=== PATIENT | male | born 1990 | race Caucasian/White ===

== ENCOUNTER 2019-03-22 11:58 | Observation (INO) ==
[2019-03-22] MEDS ORDERED: NS 1,000 ML IV ONE ×3 (12:21→15:52)
[2019-03-22] MEDS ORDERED: ZOFRAN IV ONE (12:21)
[2019-03-22] MEDS ORDERED: BENTYL IM ONE (12:21)
[2019-03-22] MEDS ORDERED: TORADOL IV ONE (12:21)
[2019-03-22 12:55] LABS: BASO# 0.03 X1000 (0.0-0.2); BASO% 0.3 % (0.0-0.8); EOS# 0.05 X1000 (0.0-0.7); EOS% 0.4 % (0.0-10.0); HEMOGLOBIN 17.3 g/dL (14.0-18.0); IMM GRAN# 0.03 X1000 (0.0-0.04); IMM GRAN% 0.3 % (0.0-0.5); LYMPH# 2.74 X1000 (1.2-3.4); MCH 29.1 PG (27-31); MCHC 35.3 g/dL (33-37); MCV 82.4 FL (81-99); MONO# 1.43 X1000 (0.11-0.59); MONO% 12.5 % (1.7-9.3); MPV 11.7 FL (7.4-10.4); NEUT# 7.16 X1000 (1.4-6.5); NEUT% 62.5 % (42.2-75.2); PLT 352 X1000 (130-400); RBC 5.95 XMIL (4.7-6.1); RDW 12.9 % (11.5-14.5); WBC 11.44 X1000 (4.8-10.8)
[2019-03-22 13:25] LABS: BILIRUBIN URINE NEGATIVE (NEGATIVE); BLOOD URINE NEGATIVE (NEGATIVE); CLARITY CLEAR (CLEAR); COLOR YELLOW; KETONE URINE 1+(Small) mg/dL (NEGATIVE); LEUKOCYTES URINE TRACE (NEGATIVE); NITRITE URINE NEGATIVE (NEGATIVE); PROTEIN URINE TRACE mg/dL (NEGATIVE); UROBILINOGEN URINE 1 mg/dL
[2019-03-22 13:26] LABS: URINE EPITHELIAL CELLS <10 /HPF (<10)
[2019-03-22 13:27] LABS: URINE SOURCE CLEAN CATCH
[2019-03-22 13:31] LABS: CALCIUM 10.7 mg/dL (8.8-10.2); MAGNESIUM 2.4 mg/dL (1.5-2.7); POTASSIUM 3.3 mmol/L (3.5-5.1); TOTAL BILIRUBIN 1.7 mg/dL (0.20-1.00)
[2019-03-22 13:42] LABS: UR AMPHETAMINES QUAL PRESUMPTIVE POSITIVE (NONE DETECT); UR BARBITUATES QUAL NONE DETECTED (NONE DETECT); UR BENZODIAZEPIN QUAL NONE DETECTED (NONE DETECT); UR CANNABINOIDS QUAL PRESUMPTIVE POSITIVE (NONE DETECT); UR COCAINE QUAL NONE DETECTED (NONE DETECT); UR METHADONE QUAL NONE DETECTED (NONE DETECT); UR METHAMPHETAMINE QUAL PRESUMPTIVE POSITIVE (NONE DETECT); UR OPIATES QUAL PRESUMPTIVE POSITIVE (NONE DETECT); UR OXYCODONE QUAL NONE DETECTED (NONE DETECT); UR PCP QUAL NONE DETECTED (NONE DETECT); UR PROPOXYPHENE QUAL NONE DETECTED (NONE DETECT); UR TCA QUAL NONE DETECTED (NONE DETECT)
--- NOTE | 2019-03-22 14:01 | Diag Imaging Result Doc PS360 ---
EXAM: CT ABDOMEN/PELVIS W/O CONTRAST HISTORY: vomiting poss SBO, EH TECHNIQUE: CT abdomen and pelvis without contrast COMPARISON: None. FINDINGS: No calcified gallstones or adjacent inflammation. No focal hepatic abnormality identified on this noncontrasted exam. The spleen and left kidney have been removed. Normal pancreas, adrenal glands, and right kidney. No hydronephrosis. Normal aorta. The bowel loops are dilated. Normal appendix. No abscess. No ascites. The urinary bladder is only mildly distended. Normal prostate. IMPRESSION: 1.No bowel obstruction 2.Splenectomy and left nephrectomy This exam was performed using automated exposure control, adjustment of mA or kV according to patient size, and/or use of iterative reconstruction technique. Electronically signed by Pietro Valdez 03/22/2019 1:59 PM
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
[2019-03-22] MEDS ORDERED: TYLENOL PO PRN (15:52)
[2019-03-22] MEDS ORDERED: KLOR-CON PO ONE (17:17)
[2019-03-22] MEDS ORDERED: TORADOL IV PRN (17:40)
[2019-03-22] MEDS ORDERED: NUBAIN IV PRN (19:00)
[2019-03-22] MEDS ORDERED: PRILOSEC PO ONE (19:01)
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
[2019-03-22 21:22] LABS: UR CREAT RANDOM 175.8 mg/dL (14-26); UR PROT RANDOM 12.6 mg/dL
[2019-03-23 06:15] LABS: BASO# 0.04 X1000 (0.0-0.2); BASO% 0.4 % (0.0-0.8); EOS# 0.25 X1000 (0.0-0.7); EOS% 2.4 % (0.0-10.0); HEMATOCRIT 40.7 % (42.0-52.0); HEMOGLOBIN 13.5 g/dL (14.0-18.0); IMM GRAN# 0.02 X1000 (0.0-0.04); IMM GRAN% 0.2 % (0.0-0.5); LYMPH# 3.64 X1000 (1.2-3.4); LYMPH% 34.3 % (20.5-51.1); MCH 28.6 PG (27-31); MCHC 33.2 g/dL (33-37); MCV 86.2 FL (81-99); MONO# 1.79 X1000 (0.11-0.59); MONO% 16.9 % (1.7-9.3); MPV 11.5 FL (7.4-10.4); NEUT# 4.88 X1000 (1.4-6.5); NEUT% 45.8 % (42.2-75.2); PLT 288 X1000 (130-400); RBC 4.72 XMIL (4.7-6.1); RDW 13.2 % (11.5-14.5); WBC 10.62 X1000 (4.8-10.8)
[2019-03-23 06:29] LABS: CALCIUM 8.8 mg/dL (8.8-10.2); CREATININE 1.6 mg/dL (0.7-1.2); POTASSIUM 4.6 mmol/L (3.5-5.1)
[2019-03-23] MEDS ORDERED: PRILOSEC PO SCH (07:00)
[2019-03-23 07:46] VITALS: BP 132/69
[2019-03-23] MEDS: ZOFRAN IV PRN ×2 (08:18→12:38)
[2019-03-23] MEDS ORDERED: NS 500 ML IV ONE (11:43)
[2019-03-23] MEDS ORDERED: NS 1,000 ML IV ONE (11:44)
[2019-03-23] MEDS ORDERED: REGLAN IV SCH (12:30)
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
--- NOTE | 2019-03-24 08:26 | PROGRESS NOTE ---
DATE: 03/23/2019 The patient still had a little bit of nausea and vomiting this morning. We will continue to advance diet. His kidney function is improved. We will continue IV fluids. Anticipate discharge. I am not sure if he may not be experiencing some withdrawal but he is not going to give me any information or enough information. He says he does not use methamphetamine regularly. His last usage was maybe 2 weeks ago but it is still in his system so that is not accurate. In any case, I think if he is tolerating p.o. without difficulty, we can anticipate discharge later today. Follow up with primary care. cc: Pankaj Trejo MD
== END 2019-03-23 17:18 | disposition home or self-care (01) ==
LOC: P.ED 11:58 → P.MEDSURG 11:58
PROVIDERS: ATTEND Internal Medicine

== ENCOUNTER 2019-05-06 19:06 | Inpatient (IN) ==
[2019-05-06 19:41] LABS: URINE SOURCE CLEAN CATCH
[2019-05-06 19:47] LABS: BLOOD URINE NEGATIVE (NEGATIVE); COLOR YELLOW; GLUCOSE URINE NEGATIVE (NEGATIVE); KETONE URINE TRACE mg/dL (NEGATIVE); LEUKOCYTES URINE NEGATIVE (NEGATIVE); NITRITE URINE NEGATIVE (NEGATIVE); PH URINE 6.5; PROTEIN URINE 30 mg/dL (NEGATIVE); SP GRAVITY URINE 1.026; TURBIDITY URINE HAZY (CLEAR); UROBILINOGEN URINE 3 mg/dL (NORMAL)
[2019-05-06 19:50] LABS: BASO# 0.03 X1000 (0.0-0.2); BASO% 0.3 % (0.0-0.8); EOS# 0.05 X1000 (0.0-0.7); EOS% 0.5 % (0.0-10.0); HEMATOCRIT 52.9 % (42.0-52.0); HEMOGLOBIN 18.4 g/dL (14.0-18.0); IMM GRAN# 0.03 X1000 (0.0-0.04); IMM GRAN% 0.3 % (0.0-0.5); LYMPH# 2.43 X1000 (1.2-3.4); LYMPH% 23.9 % (20.5-51.1); MCH 28.5 PG (27-31); MCHC 34.8 g/dL (33-37); MCV 81.9 FL (81-99); MONO% 15.7 % (1.7-9.3); MPV 12.7 FL (7.4-10.4); NEUT# 6.04 X1000 (1.4-6.5); NEUT% 59.3 % (42.2-75.2); PLT 191 X1000 (130-400); RBC 6.46 XMIL (4.7-6.1); RDW 15.3 % (11.5-14.5); WBC 10.18 X1000 (4.8-10.8)
[2019-05-06 19:51] LABS: UR EPITHELIAL CELLS <10 /HPF (<10); URINE BACTERIA NEGATIVE /HPF; URINE RBC TNTC /HPF (<10); URINE WBC <10 /HPF (<10)
[2019-05-06 20:04] LABS: BILIRUBIN URINE LARGE (NEGATIVE)
[2019-05-06 20:10] LABS: URINE CRYSTALS NONE SEEN; URINE YEAST NONE SEEN
[2019-05-06 20:32] LABS: ESTIMATED GFR > 60
[2019-05-06 20:37] LABS: AGAP 17; ALB/GLOB RATIO 1.3; ALBUMIN 3.5 g/dL (3.5-5.0); ALKALINE PHOSPHATASE 201 U/L (32-122); AMYLASE 55 U/L (20-200); BUN 11 mg/dL (8-22); CALCIUM 8.3 mg/dL (8.8-10.2); CHLORIDE 86 mmol/L (98-107); COSMO 260; CREATININE 1.2 mg/dL (0.7-1.2); GLUCOSE 96 mg/dL (70-104); LIPASE 65 U/L (13-60); POTASSIUM 3.7 mmol/L (3.5-5.1); SODIUM 130 mmol/L (136-145); TCO2 27 mmol/L (25-35); TOTAL PROTEIN 6.3 g/dL (6.3-8.3)
[2019-05-06 20:40] LABS: GOT 3474 U/L (10-34)
[2019-05-06 20:41] LABS: GPT 3074 U/L (10-44)
[2019-05-06] MEDS ORDERED: NS 2,500 ML IV ONE (20:42)
[2019-05-06] MEDS ORDERED: ZOFRAN IV ONE (20:43)
--- NOTE | 2019-05-06 21:38 | Diag Imaging Result Doc PS360 ---
EXAM: CT ABDOMEN/PELVIS W/O CONTRAST INDICATION: abdominal pain with hematuria TECHNIQUE: This exam was performed using automated exposure control, adjustment of mA or kV according to patient size, and/or use of iterative reconstruction technique. COMPARISON: 03/22/2019 FINDINGS: There is stable metallic shrapnel in the subcutaneous soft tissues overlying the left chest wall anteriorly. There has been a prior splenectomy. There has been a prior left nephrectomy. The right kidney appears normal with no renal or ureteral stones and no hydronephrosis. The urinary bladder is unremarkable. The gallbladder is completely contracted. The liver, pancreas, and adrenal glands are unremarkable. Since the previous study, there has been development of small volume ascites tracking around the liver, in the left upper quadrant, and layering in the pelvis. The colonic wall appears mildly thickened as compared to the previous study and there is suggestion of mild pericolonic stranding. This suggests possible mild colitis. Please correlate clinically. There is no evidence of bowel obstruction. The remainder of the GI tract is grossly unremarkable. No free abdominal gas is appreciated. There is no evidence of acute osseous abnormality. IMPRESSION: 1.Interval development of small volume ascites. 2.Mild colonic wall thickening and suggestion of minimal pericolonic stranding. Consider mild colitis. 3.Other incidental/nonacute findings detailed above. Electronically signed by Patricio Granger 05/06/2019 9:35 PM
--- NOTE | 2019-05-06 22:55 | PROVIDER DOCUMENTATION ---
HPI-Abdominal Pain/GI Problem - General Chief Complaint: Abdominal Pain Stated Complaint: KIDNEY ISSUES, VOMITING Time Seen by Provider: 05/06/19 19:18 Source: patient Allergies/Adverse Reactions: Patient Allergies Allergy/AdvReac Type Severity Reaction Status Date / Time Aminoglycosides AdvReac Verified 05/07/19 13:31 amphotericin B AdvReac Verified 05/07/19 13:31 vancomycin AdvReac Verified 05/07/19 13:31 Home Medications: Home Medication List Medication Instructions Recorded Confirmed Last Taken Type Lisinopril 10 mg PO DAILY 03/22/19 05/06/19 Unknown History - History of Present Illness-ABD Nature of Presenting Problems: Patient reports generalized abdominal pain x 3 days with associated N/V and without constipation or diarrhea. He has not been able to keep food down for days now. Denies fever or sick contact Abdominal Pain Onset Location: reports: generalized abdomen Pain Radiation: reports: no radiation Quality of Pain: reports: throbbing Onset/Duration: reports: 3 days ago Timing: reports: still present Activities at Onset: reports: none Exposure to sick contacts?: No Modifying Factors: improves with: nothing Associated Symptoms: reports: nausea, vomiting Last BM: unsure Dark Stools Present?: reports: none noticed Rectal Bleeding: reports: none Review of Systems - Adult - REVIEW OF SYSTEMS - ADULT Constitutional: reports: no symptoms reported Eyes: reports: no symptoms reported Ears, Nose, Mouth & Throat: reports: no symptoms reported Cardiovascular: reports: no symptoms reported Respiratory: reports: no symptoms reported Gastrointestinal: reports: see HPI Genitourinary: reports: no symptoms reported Musculoskeletal: reports: no symptoms reported Integumentary: reports: no symptoms reported Neurological: reports: no symptoms reported Psychiatric: reports: no symptoms reported Endocrine: reports: no symptoms reported Hematologic/Lymphatic: reports: no symptoms reported Allergic/Immunologic: reports: no symptoms reported Past History - Adult - PAST MEDICAL HISTORY-ADULT Review of Records: reports: Nursing Assessment Review, Medications Reviewed, Social history reviewed & non-contributory. Gastrointestinal: reports: liver disease (hepC) Musculoskeletal: reports: denies history Neurological: reports: denies history Psychiatric: reports: denies history Endocrine/Immune: reports: denies history - PRIOR SURGERIES/PROCEDURES Surgical/Procedure History: reports: other (nephrectomy left, splenectomy) - FAMILY HISTORY Family History: reviewed, not pertinent - SOCIAL HISTORY Smoking: cigarettes (former) Substance Use: denies (substance use), alcohol Physical Exam-General - PHYSICAL EXAM-ADULT Initial Vital Signs Reviewed: Yes - CONSTITUTIONAL General Appearance: alert, mild distress - EYES Eyes: scleral icterus - HEAD, EARS, NOSE, MOUTH & THROAT HENMT: normocephalic/atraumatic - NECK Neck: non-tender, full range of motion, supple - RESPIRATORY Respiratory: chest non-tender, lungs clear, normal breath sounds - CARDIOVASCULAR Cardiovascular: regular rate, rhythm - GASTROINTESTINAL (ABDOMEN) Abdominal Exam: tenderness (mild, generalised, worse on the right) - MUSCULOSKELETAL Back Exam: normal inspection Extremity: normal range of motion, non-tender - SKIN Integumentary: normal turgor - NEUROLOGIC Neurologic: bass fisher II-XII nml as tested - PSYCHIATRIC Psych/Mental Status: oriented x 3 Progress - PLAN OF CARE/RESULTS Progress/Plan/Lab Results: Vital Signs - 8 hr 05/06/19 19:11 05/06/19 19:42 05/06/19 19:44 Temperature 97.7 F Pulse Rate 125 H Respiratory Rate 16 Blood Pressure 112/72 110/75 O2 Sat by Pulse Oximetry 95 98 97 05/06/19 19:45 05/06/19 20:00 05/06/19 20:15 Temperature Pulse Rate Respiratory Rate Blood Pressure O2 Sat by Pulse Oximetry 98 95 98 05/06/19 20:30 05/06/19 20:45 05/06/19 21:00 Temperature Pulse Rate 103 H 113 H Respiratory Rate 16 20 Blood Pressure O2 Sat by Pulse Oximetry 99 98 97 05/06/19 21:27 05/06/19 21:30 05/06/19 21:45 Temperature Pulse Rate 104 H 98 H 98 H Respiratory Rate 14 16 Blood Pressure O2 Sat by Pulse Oximetry 96 98 05/06/19 22:00 05/06/19 22:14 05/06/19 22:16 Temperature Pulse Rate 104 H 109 H 111 H Respiratory Rate 22 17 15 Blood Pressure 109/81 127/83 O2 Sat by Pulse Oximetry 99 99 99 Laboratory Results - last 24 hr 05/06/19 05/06/19 05/06/19 19:20 19:20 19:21 WBC 10.18 RBC 6.46 H Hgb 18.4 H Hct 52.9 H MCV 81.9 MCH 28.5 MCHC 34.8 RDW Std Deviation 15.3 H Plt Count 191 MPV 12.7 H Immature Gran % (Auto) 0.3 Neut % (Auto) 59.3 Lymph % (Auto) 23.9 [place] % (Auto) 15.7 H Eos % (Auto) 0.5 Baso % (Auto) 0.3 Immature Gran # (Auto) 0.03 Neut # (Auto) 6.04 Lymph # (Auto) 2.43 [place] # (Auto) 1.60 H Eos # (Auto) 0.05 Baso # (Auto) 0.03 Sodium 130 L Potassium 3.7 Chloride 86 L Carbon Dioxide 27 Anion Gap 17 BUN 11 Creatinine 1.2 Estimated GFR/1.73 m2 > 60 BUN/Creatinine Ratio 9 Glucose 96 Calculated Osmolality 260 Calcium 8.3 L Total Bilirubin 20.30 H AST 3474 H ALT 3074 H Alkaline Phosphatase 201 H Total Protein 6.3 Albumin 3.5 Globulin 2.8 Albumin/Globulin Ratio 1.3 Amylase 55 Lipase 65 H Plasma Lactate 4.7 H* Urine Source Urine Color Urine Turbidity Urine pH Ur Specific [place] Urine Protein Ur Glucose (Stick) Ur Ketones (Stick) Urine Blood Urine Nitrite Urine Bilirubin Urobilinogen Dipstick Urine Leukocytes Urine WBC (Auto) Urine RBC (Auto) U Epithel Cells (Auto) Urine Bacteria (Auto) Urine Crystals Small Round Cells Urine Casts Urine Yeast-like Cells 05/06/19 19:26 WBC RBC Hgb Hct MCV MCH MCHC RDW Std Deviation Plt Count MPV Immature Gran % (Auto) Neut % (Auto) Lymph % (Auto) [place] % (Auto) Eos % (Auto) Baso % (Auto) Immature Gran # (Auto) Neut # (Auto) Lymph # (Auto) [place] # (Auto) Eos # (Auto) Baso # (Auto) Sodium Potassium Chloride Carbon Dioxide Anion Gap BUN Creatinine Estimated GFR/1.73 m2 BUN/Creatinine Ratio Glucose Calculated Osmolality Calcium Total Bilirubin AST ALT Alkaline Phosphatase Total Protein Albumin Globulin Albumin/Globulin Ratio Amylase Lipase Plasma Lactate Urine Source CLEAN CATCH Urine Color YELLOW Urine Turbidity HAZY Urine pH 6.5 Ur Specific [place] 1.026 Urine Protein 30 A Ur Glucose (Stick) NEGATIVE Ur Ketones (Stick) TRACE A Urine Blood NEGATIVE Urine Nitrite NEGATIVE Urine Bilirubin LARGE A Urobilinogen Dipstick 3 A Urine Leukocytes NEGATIVE Urine WBC (Auto) <10 Urine RBC (Auto) TNTC A U Epithel Cells (Auto) <10 Urine Bacteria (Auto) NEGATIVE Urine Crystals NONE SEEN Small Round Cells Not Reportable Urine Casts Not Reportable Urine Yeast-like Cells NONE SEEN Orders Category Date Time Status Saline Loc DIRECTED Care 05/06/19 19:17 Active NPO Diet 05/06/19 19:[address] ABDOMEN/PELVIS W/O CONTRAST [CT] Stat Exams 05/06/19 20:35 Completed AMYLASE [CHEM] Stat Lab 05/06/19 19:20 Completed BLOOD CULTURE [BLDCUL] Stat Lab 05/06/19 19:49 Results CBC WITH ELECTRONIC DIFF [HEME] Stat Lab 05/06/19 19:20 Completed COMPREHENSIVE METABOLIC PANEL [CHEM] Stat Lab 05/06/19 19:20 Completed LACTATE, PLASMA [CHEM] Stat Lab 05/06/19 19:21 Completed LIPASE [CHEM] Stat Lab 05/06/19 19:20 Completed URINALYSIS W/POSS RFLX CULT [URINALYSIS] Stat Lab 05/06/19 19:26 Completed URINE MANUAL MICROSCOPIC [URINALYSIS] Stat Lab 05/06/19 19:26 Completed 0.9% Sodium Chloride Inj [Ns] 2,500 ml Med 05/06/19 20:42 Active IV 999 mls/hr Ondansetron [Zofran] Med 05/06/19 20:43 Discontinued 8 mg IV NOW ONE Result Diagrams: 05/06/19 19:20 05/06/19 19:20 - REASSESSMENT Reassessment #1 Status: unchanged (Patient continues to have abdominal pains but no nausea or vomiting. Has blood in urine, markedly elevated liver enzymes. receiving fluids for high lactate of 4.7. Discussed admission with patient and then Dr Causey) - CT/MRI 2 CT Study: Abdomen ( EXAM: CT ABDOMEN/PELVIS W/O CONTRAST INDICATION: abdominal pain with hematuria TECHNIQUE: This exam was performed using automated exposure control, adjustment of mA or kV according to patient size, and/or use of iterative reconstruction technique. COMPARISON: 03/22/2019 FINDINGS: There is stable metallic shrapnel in the subcutaneous soft tissues overlying the left chest wall anteriorly. There has been a prior splenectomy. There has been a prior left nephrectomy. The right kidney appears normal with no renal or ureteral stones and no hydronephrosis. The urinary bladder is unremarkable. The gallbladder is completely contracted. The liver, pancreas, and adrenal glands are unremarkable. Since the previous study, there has been development of small volume ascites tracking around the liver, in the left upper quadrant, and layering in the pelvis. The colonic wall appears mildly thickened as compared to the previous study and there is suggestion of mild pericolonic stranding. This suggests possible mild colitis. Please correlate clinically. There is no evidence of bowel obstruction. The remainder of the GI tract is grossly unremarkable. No free abdominal gas is appreciated. There is no evidence of acute osseous abnormality. IMPRESSION: 1.Interval development of small volume ascites. 2.Mild colonic wall thickening and suggestion of minimal pericolonic stranding. Consider mild colitis. 3.Other incidental/nonacute findings detailed above. Electronically signed by Patricio Granger 05/06/2019 9:35 PM [id number]/06/192134 Interpreting Physician: Patricio Granger MD Dictated Date/Time: 05/06/[id number]) - CONSULTS/PCP/HOSPITALIST Notification #1 *Consult/PCP/Hospitalist*: Dr Causey Time Discussed: 10:55 Consult Disposition: Admit (accepts admission) Departure - Departure Date of Disposition Decision: 05/06/19 Time of Disposition Decision: 22:58 DIAGNOSIS: Vomiting with nausea, not intractable, Transaminitis, Lactate blood increase Abdominal pain Qualifiers: Abdominal location: generalized Qualified Code(s): R10.84 - Generalized abdomi nal pain Disposition: ADMITTED INPATIENT 09 Certified Medical Emergency: Emergent Condition: Fair - Critical Care Note This patient required my direct & personal management of CC.: No Attestation - Physician/ HEIDY Attestation Patient care was provided by Advanced Practice Provider:: No The physician spent face to face time with patient:: Yes Advanced Practice Provider documentation review:: Supervising physician onsite and consulted in the evaluation and care of this patient. The physician did have a face to face encounter with the patient.
[2019-05-07] MEDS ORDERED: TORADOL IV ONE ×2 (00:26→15:10)
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
[2019-05-07] MEDS: ZOFRAN IV PRN (04:32)
[2019-05-07] MEDS: NS 1,000 ML IV SCH ×2 (04:32→15:33)
[2019-05-07] MEDS ORDERED: MORPHINE IV ONE (05:15)
[2019-05-07] MEDS: PRINIVIL PO SCH (11:22)
[2019-05-07 14:20] LABS: UR AMPHETAMINES QUAL NONE DETECTED (NONE DETECT); UR BARBITUATES QUAL NONE DETECTED (NONE DETECT); UR BENZODIAZEPIN QUAL NONE DETECTED (NONE DETECT); UR CANNABINOIDS QUAL PRESUMPTIVE POSITIVE (NONE DETECT); UR COCAINE QUAL NONE DETECTED (NONE DETECT); UR METHADONE QUAL NONE DETECTED (NONE DETECT); UR OPIATES QUAL NONE DETECTED (NONE DETECT); UR OXYCODONE QUAL NONE DETECTED (NONE DETECT); UR PCP QUAL NONE DETECTED (NONE DETECT)
[2019-05-07 15:28] LABS: TOTAL IRON 156 ug/dL (53-167); UNBOUND IRON < 1 ug/dL (112-346)
--- NOTE | 2019-05-07 20:35 | PROGRESS NOTE ---
DATE: 05/07/2019 INTERVAL HISTORY: Mr. Gonzalez was admitted for nausea, vomiting, and mainly epigastric abdominal pain of 3 days' duration and was found to have acute hepatitis. SUBJECTIVE: He states occasionally he smokes marijuana, but he does not use any intravenous drugs anymore. He states that he was diagnosed with hepatitis C 2 years ago but does not know the chronicity, activity or if it was associated with hepatitis B as well or not. He states he is currently ready to eat. He is complaining of yellow-colored urine. He has not had any vomiting since he has been on the hospital floor. OBJECTIVE: Vitals: Temperature of 98.4 degrees, pulse 119, respiratory rate 16, blood pressure 106/62, saturating 98% room air. On physical examination: Not in any acute distress. Scleral and skin icterus. Air entry bilaterally equal. No wheeze, rhonchi, crackles, S1, S2 normal. No murmur or gallop. The abdomen is soft. Right upper quadrant tenderness. Liver edge palpable about 2 cm below the costal margin. Active bowel sounds. No lower extremity edema. He is alert and oriented x3. LABS: His hemoglobin was 18.4, platelet of 191. Chemistry suggestive of hyponatremia, hypochloremia, elevated total and direct bilirubin and transaminitis and lactic acidosis. MICROBIOLOGY: Blood culture has not shown any growth to date. IMAGING: Abdomen and pelvis CT suggestive of interval development of small volume of ascites. ASSESSMENT AND PLAN: 1. Acute hepatitis. Differential includes acute viral hepatitis, or reactivation or flare-up of chronic hepatitis, versus others. Continue intravenous fluid resuscitation. Follow up hepatitis panel and antinuclear antibody. Further tests will be ordered based on those laboratory test results. The patient was counseled about refraining from intravenous drug use. He agrees. I will start patient on diet. 2. Essential hypertension. Continue lisinopril. 3. Intractable nausea and vomiting. Continue patient on Zofran as needed. DISPOSITION: Continue monitoring patient inside the hospital. Dr. Thakur from GI has been consulted. cc: Stewart Pisano MD [facility]
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
[2019-05-08] MEDS: NS 1,000 ML IV SCH (00:14)
[2019-05-08] MEDS ORDERED: MORPHINE IV ONE (00:24)
[2019-05-08] MEDS: ZOFRAN IV PRN (00:56)
[2019-05-08 07:39] LABS: ALBUMIN 2.5 g/dL (3.5-5.0); CALCIUM 8.1 mg/dL (8.8-10.2); CREATININE 1.7 mg/dL (0.7-1.2); POTASSIUM 4.1 mmol/L (3.5-5.1)
[2019-05-08 07:50] LABS: TOTAL BILIRUBIN 18.34 mg/dL (0.20-1.00)
[2019-05-08 08:38] LABS: BASO# 0.06 X1000 (0.0-0.2); BASO% 0.6 % (0.0-0.8); EOS# 0.22 X1000 (0.0-0.7); EOS% 2.3 % (0.0-10.0); HEMATOCRIT 42.3 % (42.0-52.0); HEMOGLOBIN 14.7 g/dL (14.0-18.0); LYMPH# 2.56 X1000 (1.2-3.4); LYMPH% 26.9 % (20.5-51.1); MCH 29.2 PG (27-31); MCHC 34.8 g/dL (33-37); MCV 84.1 FL (81-99); MONO# 1.74 X1000 (0.11-0.59); MONO% 18.3 % (1.7-9.3); MPV 12.8 FL (7.4-10.4); NEUT# 4.93 X1000 (1.4-6.5); NEUT% 51.9 % (42.2-75.2); PLT 215 X1000 (130-400); RBC 5.03 XMIL (4.7-6.1); RDW 15.7 % (11.5-14.5); WBC 9.51 X1000 (4.8-10.8)
[2019-05-08 09:01] LABS: BANDS 2 % (0-1); EOS 2 % (1-10); LYMPHS 28 % (21-51); MONO 12 % (1-9); SEGS 54 % (42-75)
[2019-05-08 09:02] LABS: HYPOCHROM 1+; POIKILOCYTOSIS 1+
[2019-05-08 09:56] LABS: INR 2.21; PROTIME 25.1 Seconds (11.0-16.0)
[2019-05-08 09:57] LABS: PTT 41.1 Seconds (22.3-41.8)
--- NOTE | 2019-05-08 11:10 | Diag Imaging Result Doc PS360 ---
EXAM: US ABDOMEN-COMPLETE INDICATION: hepatitis COMPARISON: None. FINDINGS: There is small volume ascites tracking around the liver and in the left upper quadrant. The gallbladder wall is thickened and edematous. This may be, at least in part, due to the adjacent ascites and partial contraction. Correlate clinically to exclude a component of cholecystitis. Sonographic Mosher's sign was reported to be negative by the advertising job [employer]. The liver is grossly unremarkable. No discrete hepatic mass is identified. Portal venous flow is hepatopetal. The pancreas is partially obscured. The visualized portion is unremarkable. The visualized portions of the aorta and IVC are grossly unremarkable. There has been a prior splenectomy. There has been a prior left nephrectomy. The right kidney is unremarkable. IMPRESSION: 1.Small volume ascites. 2.Thickened and edematous gallbladder wall that may be due to the adjacent ascites and partial contraction. However, a component of cholecystitis cannot completely be excluded in the right clinical scenario. Electronically signed by Patricio Granger 05/08/2019 11:08 AM
[2019-05-08] MEDS: PRINIVIL PO SCH (11:34)
--- NOTE | 2019-05-08 14:07 | PROGRESS NOTE ---
DATE: 05/08/2019 INTERVAL HISTORY: No acute events overnight. He did have a jump in his creatinine. His liver function tests are trending down. His hepatitis panel is pending. SUBJECTIVE: He is feeling better today. He still complains of some abdominal pain. Denies new complaints. We discussed about pending liver function tests and improvement in liver enzymes. I answered all of his questions. VITALS: Temperature 97.4 degrees, pulse 93, respiratory 18, blood pressure 110/70, saturating 95% on room air. PHYSICAL EXAMINATION: Not in any acute distress. He has generalized icterus. Oral cavity is moist. Lungs: Air entry bilaterally equal. No wheeze, rhonchi, crackles. Cardiovascular: S1, S2 normal. No murmur, rub, or gallop. Abdomen: Soft. No guarding. No rigidity. No real tenderness. Active bowel sounds. No lower extremity edema. He is alert and oriented x3. LABS: His CBC suggests drop in hemoglobin from 18.4 to 14.7. His INR is elevated. His hyponatremia and hypochloremia are improving. His BUN remains the same. He does have an increase in his creatinine. His total bilirubin, AST, and ALT are decreasing. He had elevated lactic acidosis, thought to be related to liver failure. His urine toxicology was only positive for cannabis. Blood culture has not shown any growth to date. Abdominal ultrasound had small volume ascites, erythematous gallbladder wall, likely due to ascites and partial contraction. He does not have any positive Mosher's sign at the time of my evaluation to suggest cholecystitis. ASSESSMENT AND PLAN: 1. Acute hepatitis. Differential includes acute viral hepatitis or flare-up of chronic hepatitis versus others. His ferritin level is elevated, though his hemoglobin improved after intravenous fluid resuscitation. He denies known family history of hemochromatosis. I will follow up with hepatitis panel and antinuclear antibody. Appreciate gastroenterology recommendation about further workup as needed. He does have gallbladder wall edema but no clinical findings to suggest acute cholecystitis. 2. Essential hypertension. I am holding lisinopril. 3. Kidney dysfunction. This could be related to intravascular volume depletion versus use of ketorolac. I am holding further nonsteroidal anti-inflammatory drug medications and I will follow up with kidney function tomorrow. Continue intravenous fluids. 4. Intractable nausea and vomiting, now better. Continue Zofran as needed. 5. Disposition. I will monitor patient inside the hospital. Await hepatitis panel. Plan of care discussed with him. His questions have been answered. Yesterday, I had a detailed discussion about the plan of action with his father at the bedside as well. cc: Stewart Pisano MD
[2019-05-08] MEDS ORDERED: BENTYL PO ONE (19:02)
[2019-05-08 20:21] LABS: INR 1.77
--- NOTE | 2019-05-08 21:18 | GASTROENTEROLOGY PROGRESS NOTE ---
DATE: 05/08/2019 SUBJECTIVE: Patient does report some abdominal pain today. He states he has had more pain since the abdominal ultrasound was done. Ultrasound results are reviewed showing small volume ascites, thickened and edematous gallbladder wall. May be due to adjacent ascites and partial contraction however possible cholecystitis cannot be excluded. OBJECTIVE: Vital Signs: Temperature 97.4 degrees, pulse 93, respirations 18, blood pressure 110/70. General: Patient is awake and alert. No acute distress. Abdomen: Soft with some tenderness with palpation. LABORATORY: Hematology. WBC 9.51, hemoglobin 14.7, hematocrit 42.3, MCV 84.1. Chemistry. Sodium 135, potassium 4.1, chloride 99, CO2 28, BUN 13, creatinine 1.7, glucose 84. ASSESSMENT AND PLAN: 1. Acute hepatitis. Waiting on hepatitis profile. 2. Elevated PT/INR. Will repeat tomorrow. 3. Abdominal pain. Ultrasound showing small volume ascites and thickened edematous gallbladder, possibility of cholecystitis cannot be excluded. Will continue to follow. Further plans to be made according to his progress. Repeat labs tomorrow. He may need a HIDA scan for further evaluation. I have discussed this case with Dr. Thakur. Dictated by MARCELINO Ralph for Can Thakur MD cc: MARCELINO Navarrete MD
[2019-05-09] MEDS: NS 1,000 ML IV SCH ×4 (05:36→23:48)
[2019-05-09 07:00] LABS: INR 1.66
[2019-05-09 07:03] LABS: BASO# 0.08 X1000 (0.0-0.2); BASO% 0.7 % (0.0-0.8); EOS# 0.22 X1000 (0.0-0.7); EOS% 1.9 % (0.0-10.0); HEMATOCRIT 42.2 % (42.0-52.0); HEMOGLOBIN 14.8 g/dL (14.0-18.0); IMM GRAN# 0.02 X1000 (0.0-0.04); IMM GRAN% 0.2 % (0.0-0.5); LYMPH# 2.85 X1000 (1.2-3.4); LYMPH% 24.8 % (20.5-51.1); MCHC 35.1 g/dL (33-37); MCV 82.7 FL (81-99); MONO# 1.87 X1000 (0.11-0.59); MONO% 16.3 % (1.7-9.3); MPV 12.1 FL (7.4-10.4); NEUT# 6.44 X1000 (1.4-6.5); NEUT% 56.1 % (42.2-75.2); PLT 245 X1000 (130-400); RDW 15.8 % (11.5-14.5); WBC 11.48 X1000 (4.8-10.8)
[2019-05-09 07:52] LABS: AGAP 9; ALBUMIN 2.5 g/dL (3.5-5.0); ALKALINE PHOSPHATASE 155 U/L (32-122); BUN 11 mg/dL (8-22); CALCIUM 8.3 mg/dL (8.8-10.2); CHLORIDE 98 mmol/L (98-107); COSMO 262; CREATININE 1.2 mg/dL (0.7-1.2); ESTIMATED GFR > 60; GLUCOSE 72 mg/dL (70-104); GOT 436 U/L (10-34); POTASSIUM 4.2 mmol/L (3.5-5.1); SODIUM 132 mmol/L (136-145); TCO2 25 mmol/L (25-35); TOTAL PROTEIN 4.9 g/dL (6.3-8.3)
[2019-05-09 08:01] LABS: GPT 864 U/L (10-44); TOTAL BILIRUBIN 18.73 mg/dL (0.20-1.00)
[2019-05-09 12:26] LABS: HEPATITIS PROFILE ACUTE SEE COMMENTS
--- NOTE | 2019-05-09 14:45 | GASTROENTEROLOGY PROGRESS NOTE ---
DATE: 05/09/2019 SUBJECTIVE: Patient is awake and alert. He is complaining of abdominal pain. OBJECTIVE: Vital Signs: Temperature 98.2 degrees, pulse 101, respirations 18, blood pressure 122/70. General: The patient is awake and alert. Abdomen: Soft, tender, worse at right quadrant. LABORATORY: Hematology: WBC 11.48, hemoglobin 14.8, hematocrit 42.2, MCV 82.7, platelets 245. Coagulation: Pro time 20.0, INR 1.66, PTT 41.1. Chemistry: Sodium 132, potassium 4.2, chloride 98, CO2 25. BUN 11, creatinine 1.2, glucose 72, calcium 8.3, total bilirubin 18.73. AST 436, ALT 864, alkaline phosphatase 155. ASSESSMENT AND PLAN: 1. Acute hepatitis. waiting on hepatitis profile results. 2. Elevated PT/INR has slightly improved today. 3. Elevated liver function tests with some improvement. 4. Abdominal pain. Ultrasound showed small volume ascites and thickened edematous gallbladder. Possibility of cholecystitis could not be excluded. I will discuss this case with Dr. Thakur. We may need to order a HIDA scan for further evaluation. Will continue to follow during his hospital course, and further plans to be made as needed. I have discussed this case with Dr. Thakur. Dictated by MARCELINO Ralph for Can Thakur MD cc: MARCELINO Navarrete MD [facility]
[2019-05-09] MEDS: DILAUDID IV PRN (18:26)
--- NOTE | 2019-05-09 19:38 | PROGRESS NOTE ---
DATE: 05/09/2019 INTERVAL HISTORY: He continues to have abdominal pain. His hepatitis panel is positive for hepatitis B surface antigen, hepatitis A virus IgM and hepatitis C virus antibody. The patient denies any people or contact to known hepatitis A virus case. He states that he had acquired hepatitis B and hepatitis C when he was incarcerated for 1 year when he was 26 to 27 years old. He previously also had intravenous drug use. Currently, he states he only smokes marijuana which was probably 2 weeks ago. He denies nausea and vomiting. He complains of generalized abdominal pain. He complains of yellowness of urine. No change in bowel habits. VITAL SIGNS: Temperature 99 degrees, pulse 91 respiratory 18, blood pressure 124/76, saturating 97% on room air. PHYSICAL EXAMINATION: Eyes: Marked icterus. Lungs: Air entry bilaterally equal. No wheeze, rhonchi, crackles. Cardiovascular: S1, S2 normal. No murmur or gallop. Abdomen: Soft. Tenderness to palpation generalized abdomen. Active bowel sounds. Tympanic to percussion most part of the abdomen except lower flanks. Extremity: No lower extremity edema. Neurologic: He is alert and oriented x3. LABS: CBC is largely unremarkable. His INR is decreasing. He does have elevated bilirubin, improving AST, ALT, and alkaline phosphatase. Microbiology: No positive data. Hepatitis panel suggest hepatitis B surface antigen is reactive. Hepatitis C antibody is reactive. Hepatitis A viral antibody is also reactive in IgM. Hepatitis B virus DNA is pending. ASSESSMENT AND PLAN: 1. Acute hepatitis, likely viral in etiology. Acute hepatitis A and hepatitis B are likely a contributing factor, though HBV DNA is pending to confirm the acuity versus chronicity. I will continue to manage him supportively with IV fluids until we get the further blood test. 2. Small amount of ascites has been detected on abdominal ultrasound. Considering his generalized abdominal pain, I assume gastroenterology team is planning a paracentesis tomorrow. I will follow up with the studies. 3. Kidney dysfunction due to intravascular volume depletion, now improved. 4. Abdominal pain. I will give low dose of hydromorphone and continue Zofran as needed with current diet. DISPOSITION: I will monitor patient inside the hospital as we await further hepatitis serologies results and await improvement in liver function tests. Based on that, I will consider discharging home in next 48 hours or so if Gastroenterology would be okay. Plan of care discussed with him. His questions have been answered. cc: Stewart Pisano MD
[2019-05-10] MEDS: DILAUDID IV PRN ×3 (06:33→20:09)
[2019-05-10 07:13] LABS: BASO# 0.05 X1000 (0.0-0.2); BASO% 0.5 % (0.0-0.8); EOS# 0.19 X1000 (0.0-0.7); HEMATOCRIT 40.1 % (42.0-52.0); HEMOGLOBIN 14.2 g/dL (14.0-18.0); IMM GRAN# 0.03 X1000 (0.0-0.04); IMM GRAN% 0.3 % (0.0-0.5); LYMPH# 2.08 X1000 (1.2-3.4); LYMPH% 21.7 % (20.5-51.1); MCH 29.3 PG (27-31); MCHC 35.4 g/dL (33-37); MCV 82.9 FL (81-99); MONO# 1.69 X1000 (0.11-0.59); MONO% 17.7 % (1.7-9.3); MPV 12.1 FL (7.4-10.4); NEUT# 5.53 X1000 (1.4-6.5); NEUT% 57.8 % (42.2-75.2); PLT 265 X1000 (130-400); RBC 4.84 XMIL (4.7-6.1); RDW 15.8 % (11.5-14.5); WBC 9.57 X1000 (4.8-10.8)
[2019-05-10 07:21] LABS: INR 1.33; PROTIME 16.8 Seconds (11.0-16.0)
[2019-05-10 08:21] LABS: AGAP 10; ALBUMIN 2.4 g/dL (3.5-5.0); ALKALINE PHOSPHATASE 142 U/L (32-122); BUN 13 mg/dL (8-22); CALCIUM 7.9 mg/dL (8.8-10.2); CHLORIDE 101 mmol/L (98-107); COSMO 271; CREATININE 1.1 mg/dL (0.7-1.2); ESTIMATED GFR > 60; GLUCOSE 87 mg/dL (70-104); GOT 244 U/L (10-34); GPT 587 U/L (10-44); SODIUM 136 mmol/L (136-145); TCO2 25 mmol/L (25-35); TOTAL BILIRUBIN 20.08 mg/dL (0.20-1.00); TOTAL PROTEIN 4.7 g/dL (6.3-8.3)
--- NOTE | 2019-05-10 09:04 | Diag Imaging Result Doc PS360 ---
US GB < RUQ (LIMITED) - 05/10/2019 INDICATION: elevated lfts, ascites TECHNIQUE: COMPARISON: 05/08/2019 FINDINGS: There is trace ascites, certainly not enough to sample. The solid abdominal organs remain normal. IMPRESSION: Trace ascites, not enough sample. Electronically signed by Guillermo Villalobos 05/10/2019 9:02 AM
--- NOTE | 2019-05-10 15:28 | Diag Imaging Result Doc PS360 ---
EXAM: HIDA SCAN W/O EJECT. FRACTION INDICATION: abnormal US, elevated LFTs TECHNIQUE: 5.1 mCi of technetium 99 Choletec was administered intravenously and images were obtained. COMPARISON: None. FINDINGS: Hepatocellular activity is seen immediately on the initial image. However, after 120 minutes, there was still no gallbladder activity and there was no activity in small bowel. There is no obvious biliary ductal activity. At this point, the study was terminated. IMPRESSION: Hepatocellular uptake but no biliary excretion identified after 120 minutes. This usually indicates biliary obstruction. However, conditions such as acute hepatitis may significantly delayed excretion. Please correlate clinically. Electronically signed by Patricio Granger 05/10/2019 3:26 PM
[2019-05-10] MEDS: NS 1,000 ML IV SCH (16:19)
--- NOTE | 2019-05-10 23:36 | GASTROENTEROLOGY PROGRESS NOTE ---
DATE: 05/10/2019 SUBJECTIVE: Patient is awake and alert in no acute distress. He states his abdominal pain has improved slightly with the pain medication. He had an ultrasound this morning for possible paracentesis but there was only trace ascites and not enough to sample. Patient had a HIDA scan that showed hepatocellular uptake but no biliary excretion identified after 120 minutes usually indicating possible biliary obstruction however condition such as acute hepatitis may significantly delayed excretion. OBJECTIVE: Vital Signs: Temperature 98.9 degrees, pulse 95, respirations 20, blood pressure 125/75. LABORATORY: Hematology. WBC 9.57, hemoglobin 14.2, hematocrit 40.1, MCV 82.9, platelet 265,000. Chemistry. Sodium 136, potassium 4.0, chloride 101, CO2 25, BUN 13, creatinine 1.1, glucose 87, total bilirubin 20.08, AST 244, ALT 587, alkaline phosphatase 142. Patient's hepatitis panel showed hepatitis B surface antigen reactive, hepatitis B core antibody nonreactive, hepatitis C antibody reactive, hepatitis A viral antibody IgM reactive. ASSESSMENT AND PLAN: 1. Acute hepatitis. Patient has acute hepatitis A and hepatitis B and Hepatitis C. We are waiting on hepatitis B viral load by BDNA and also waiting on hepatitis C genotype and viral load. 2. Small amount of ascites unable to collect fluid for analysis. 3. HIDA scan abnormal possibility of false abnormality due to elevated bilirubin and acute hepatitis, synthetic function seems to be improving, will continue to follow. Awaiting on other lab results. Further plans will be made as needed. I have discussed this case with Dr. Thakur. Dictated by MARCELINO Ralph for Can Thakur MD cc: MARCELINO Navarrete MD [facility]
[2019-05-10] MEDS: LOVENOX SUBQ SCH (23:45)
[2019-05-11] MEDS: DILAUDID IV PRN ×6 (01:04→21:26)
--- NOTE | 2019-05-11 03:52 | PROGRESS NOTE ---
DATE: 05/10/2019 SUBJECTIVE: The patient is resting comfortably in bed. He complains of abdominal pain and mild nausea. OBJECTIVE: Vital Signs: Temperature 97 degrees, blood pressure 114/59, heart rate 95, respirations 20, and O2 saturation 97% on room air. General: This is a young male lying in bed, in no acute distress. Heart: S1, S2 normal. Regular rate and rhythm. Lungs: Equal air entry bilaterally. No wheezing. No rales. No rhonchi. Abdomen: Positive bowel sounds. Soft, nontender, nondistended. Extremities: No edema, no cyanosis. Neurologic: The patient is alert and oriented x4. LABS: White blood cell count 9.5, hemoglobin 14, hematocrit 40, platelets 265,000. Sodium 136, potassium 4, chloride 101, CO2 25, BUN 13, creatinine 1.1, glucose 87, total bilirubin 20, AST 244, ALT 587, alkaline phosphatase 142, albumin 2.4. ASSESSMENT AND PLAN: 1. Acute hepatitis. The patient is positive for hepatitis A, B and C. His bilirubin remains elevated but the transaminases are improving. Continue with supportive care. GI is following. 2. Acute kidney injury. Resolved. 3. Deep vein thrombosis prophylaxis. Will start the patient on Lovenox. cc: Jessy Yeung MD MTDD
[2019-05-11] MEDS: NS 1,000 ML IV SCH ×2 (05:19→17:06)
[2019-05-11] MEDS: PRILOSEC PO SCH (06:44)
[2019-05-11 07:25] LABS: BASO# 0.06 X1000 (0.0-0.2); BASO% 0.6 % (0.0-0.8); EOS# 0.25 X1000 (0.0-0.7); EOS% 2.4 % (0.0-10.0); HEMATOCRIT 38.8 % (42.0-52.0); HEMOGLOBIN 13.6 g/dL (14.0-18.0); IMM GRAN# 0.05 X1000 (0.0-0.04); IMM GRAN% 0.5 % (0.0-0.5); LYMPH# 3.33 X1000 (1.2-3.4); LYMPH% 31.7 % (20.5-51.1); MCH 29.2 PG (27-31); MCHC 35.1 g/dL (33-37); MCV 83.4 FL (81-99); MONO# 1.77 X1000 (0.11-0.59); MONO% 16.9 % (1.7-9.3); MPV 12.2 FL (7.4-10.4); NEUT# 5.04 X1000 (1.4-6.5); NEUT% 47.9 % (42.2-75.2); PLT 282 X1000 (130-400); RBC 4.65 XMIL (4.7-6.1); RDW 16.4 % (11.5-14.5)
[2019-05-11 07:50] LABS: AGAP 10; ALBUMIN 2.5 g/dL (3.5-5.0); ALKALINE PHOSPHATASE 137 U/L (32-122); BUN 14 mg/dL (8-22); CALCIUM 7.8 mg/dL (8.8-10.2); CHLORIDE 99 mmol/L (98-107); COSMO 267; CREATININE 0.9 mg/dL (0.7-1.2); ESTIMATED GFR > 60; GLUCOSE 108 mg/dL (70-104); GOT 138 U/L (10-34); GPT 418 U/L (10-44); POTASSIUM 3.6 mmol/L (3.5-5.1); SODIUM 133 mmol/L (136-145); TCO2 24 mmol/L (25-35); TOTAL BILIRUBIN 18.12 mg/dL (0.20-1.00); TOTAL PROTEIN 5.1 g/dL (6.3-8.3)
[2019-05-11 10:03] LABS: HCV BY PCR SEE COMMENTS
[2019-05-11 13:02] LABS: INR 1.18; PROTIME 15.2 Seconds (11.0-16.0)
--- NOTE | 2019-05-11 17:29 | GASTROENTEROLOGY PROGRESS NOTE ---
DATE: 05/11/2019 SUBJECTIVE: The patient is awake and alert. He states his pain is improved with pain medication. OBJECTIVE: Vital Signs: Temperature 97.9 degrees, pulse 107, respirations 20, blood pressure 120/75. General: The patient is awake and alert, in no acute distress. Abdomen: Soft. Mild tenderness with palpation. Positive bowel sounds. LABORATORY DATA: Hematology: WBC 10.50, hemoglobin 13.6, hematocrit 38.8, MCV 83.4, platelets 282,000. Coagulation done on 05/10/2019: Pro time 16.8, INR 1.33. Chemistry: Sodium 133, potassium 3.6, chloride 99, CO2 is 24, BUN 14, creatinine 0.9, glucose 108, calcium 7.8, total bilirubin 18.12, AST 138, ALT 418, alkaline phosphatase 137. HCV RNA came back undetected. Still waiting on hepatitis B supplemental test. ASSESSMENT AND PLAN: Acute hepatitis. The patient is positive for hepatitis A, B and C. Liver function tests are slowly improving. Would recommend repeating PT and INR today, and will repeat PT, INR and liver function tests tomorrow. His hepatitis C viral load is undetected. Waiting on hepatitis B supplemental test to result. We will continue to follow. If he is discharged over the weekend, would recommend he follow with us as an outpatient. I have discussed this case with Dr. Thakur. Dictated by MARCELINO Ralph for Can Thakur MD cc: MARCELINO Navarrete MD
--- NOTE | 2019-05-11 19:23 | PROGRESS NOTE ---
DATE: 05/11/2019 SUBJECTIVE: The patient is resting comfortably. He states that he feels a lot better. His pain is under better control. He had a bowel movement as well today. OBJECTIVE: Vital Signs: Temperature 98.1 degrees, blood pressure 119/73, heart rate 89, respirations 14, O2 saturation is 98% on room air. General: This is a jaundiced young male, lying in bed in no acute distress. Eyes: Positive for scleral icterus. Heart: S1, S2 normal. Regular rate and rhythm. Lungs: Clear to auscultation bilaterally. Abdomen: Positive bowel sounds. Soft, diffuse tenderness. Extremities: Trace pedal edema bilaterally in the lower extremities. Neurologic: The patient is alert and oriented x4. LABORATORY DATA: Hemoglobin 13, hematocrit 38, platelets 282,000. Sodium 133, potassium 3.6, chloride 99, CO2 of 24, BUN 14, creatinine 0.9, glucose 108. Total bilirubin 18, AST 138, ALT 418, alkaline phosphatase 137, albumin 2.5. ASSESSMENT AND PLAN: 1. Acute hepatitis secondary to hepatitis A and B. The hepatitis C is undetectable at this time. The patient's liver function studies are slowly improving. Continue with supportive care. GI is following. 2. Acute kidney injury. Resolved. 3. Hyponatremia. Continue to monitor closely. The patient is currently on IV fluids. 4. Deep vein thrombosis prophylaxis. Continue on Lovenox. cc: Jessy Yeung MD
[2019-05-11] MEDS: LOVENOX SUBQ SCH (22:39)
[2019-05-12] MEDS: DILAUDID IV PRN ×6 (02:01→21:59)
[2019-05-12] MEDS: PRILOSEC PO SCH ×2 (04:42→06:22)
[2019-05-12] MEDS: NS 1,000 ML IV SCH ×3 (05:52→10:12)
[2019-05-12 06:05] LABS: INR 1.2; PROTIME 15.4 Seconds (11.0-16.0)
[2019-05-12 06:07] LABS: HEMATOCRIT 36.4 % (42.0-52.0); HEMOGLOBIN 12.8 g/dL (14.0-18.0); MCH 29.8 PG (27-31); MCHC 35.2 g/dL (33-37); MCV 84.8 FL (81-99); MPV 11.6 FL (7.4-10.4); RBC 4.29 XMIL (4.7-6.1); RDW 16.7 % (11.5-14.5); WBC 10.72 X1000 (4.8-10.8)
[2019-05-12 06:29] LABS: AGAP 8; ALB/GLOB RATIO 0.8; ALBUMIN 2.2 g/dL (3.5-5.0); ALKALINE PHOSPHATASE 122 U/L (32-122); BUN 13 mg/dL (8-22); CALCIUM 7.7 mg/dL (8.8-10.2); CHLORIDE 102 mmol/L (98-107); COSMO 266; ESTIMATED GFR > 60; GLUCOSE 98 mg/dL (70-104); GOT 93 U/L (10-34); GPT 300 U/L (10-44); POTASSIUM 3.4 mmol/L (3.5-5.1); SODIUM 133 mmol/L (136-145); TCO2 23 mmol/L (25-35); TOTAL PROTEIN 5.1 g/dL (6.3-8.3)
[2019-05-12 06:39] LABS: ALB/GLOB RATIO 0.9; ALBUMIN 2.3 g/dL (3.5-5.0); ALKALINE PHOSPHATASE 122 U/L (32-122); DIRECT BILIRUBIN > 10.00 mg/dL (0.00-0.20); GOT 99 U/L (10-34); GPT 316 U/L (10-44); TOTAL BILIRUBIN 16.32 mg/dL (0.20-1.00); TOTAL BILIRUBIN 16.59 mg/dL (0.20-1.00); TOTAL PROTEIN 4.9 g/dL (6.3-8.3)
--- NOTE | 2019-05-12 07:17 | Diag Imaging Result Doc PS360 ---
EXAM: CHEST-PORTABLE HISTORY: dyspnea TECHNIQUE: Single view COMPARISON: 02/09/2017 FINDINGS: The lungs are well expanded. The heart is not enlarged. The vessels are not distended. There are no infiltrates. No effusion identified. IMPRESSION: Negative exam. Electronically signed by Pietro Valdez 05/12/2019 7:15 AM
[2019-05-12] MEDS: COLACE PO SCH ×2 (08:50→21:55)
[2019-05-12] MEDS: MIRALAX PO SCH (08:51)
[2019-05-12] MEDS ORDERED: LASIX IV ONE (18:00)
[2019-05-12] MEDS: KLOR-CON PO SCH ×2 (18:12→21:58)
--- NOTE | 2019-05-12 18:23 | PROGRESS NOTE ---
DATE: 05/12/2019 INTERVAL HISTORY: No acute events overnight. SUBJECTIVE: Patient feels he has been developing lower extremity edema and abdominal bloating. He did have bowel movement. He denies chest pain or shortness of breath. We discussed about improving liver function test, pending hepatitis B DNA. He is worried about bilateral lower extremity edema and abdominal bloating. He states he is not ready for discharge as yet. PHYSICAL EXAMINATION: Vital Signs: Temperature 98.9 degrees, pulse 104, respiratory 16, blood pressure 131/74. He is saturating 96% on room air. HEENT: He does have marked icterus. Oral cavity is moist. Lungs: Air entry bilaterally equal. No wheeze, rhonchi, or crackles. Cardiovascular: S1, S2 normal. Tachycardic, regular. No murmur, rub, or gallop. Abdomen: Distended. He has no hepatosplenomegaly. Active bowel sounds. Nontender. LOWER EXTREMITIES: Bilateral lower extremity edema extending up to thigh level. Since admission he as positive 12 L. LABS: Suggestive of no leukocytosis, improving INR, hypokalemia currently being repleted, improvement in liver function test. Microbiology, no positive data. IMAGING: Chest x-ray today did not have any acute cardiopulmonary process. ASSESSMENT AND PLAN: 1. Acute hepatitis due to hepatitis B. His hepatitis C RNA true PCR was undetectable. Hepatitis A IgG was positive, which could explain prior exposure. He denies known exposure to an individual infected with hepatitis A or hepatitis B. He denies any IV drug use in the last 6 months or having had sexual contact or anal sex or sex with men in the last 6 months. Gastroenterology on board. Hepatitis B virus DNA is pending. 2. Volume overload, likely because of massive intravenous fluid resuscitation. I will give him a dose of Lasix and follow up electrolytes tomorrow. DISPOSITION: His hepatitis B virus DNA is pending and his volume overload is better. My plan is to discharge him home in next 24 hours. He is in agreement. cc: Stewart Pisano MD
[2019-05-12] MEDS: LOVENOX SUBQ SCH (21:55)
[2019-05-12] MEDS: ZOFRAN IV PRN (21:59)
[2019-05-13] MEDS: DILAUDID IV PRN ×6 (02:03→22:12)
[2019-05-13] MEDS ORDERED: LASIX IV ONE ×2 (06:00→11:33)
[2019-05-13] MEDS: PRILOSEC PO SCH (06:11)
[2019-05-13 07:01] LABS: AGAP 10; ALB/GLOB RATIO 0.7; ALBUMIN 2.1 g/dL (3.5-5.0); ALKALINE PHOSPHATASE 127 U/L (32-122); BUN 11 mg/dL (8-22); CALCIUM 7.6 mg/dL (8.8-10.2); CHLORIDE 99 mmol/L (98-107); COSMO 264; ESTIMATED GFR > 60; GLUCOSE 98 mg/dL (70-104); GOT 69 U/L (10-34); GPT 224 U/L (10-44); POTASSIUM 3.9 mmol/L (3.5-5.1); SODIUM 132 mmol/L (136-145); TCO2 23 mmol/L (25-35); TOTAL BILIRUBIN 14.52 mg/dL (0.20-1.00); TOTAL PROTEIN 5.1 g/dL (6.3-8.3)
[2019-05-13] MEDS: MIRALAX PO SCH (10:10)
[2019-05-13] MEDS: COLACE PO SCH (10:10)
[2019-05-13] MEDS: ALBUMIN 25% IV SCH (16:31)
--- NOTE | 2019-05-13 19:01 | PROGRESS NOTE ---
DATE: 05/13/2019 SUBJECTIVE: The patient is resting comfortably in bed. He complains of swelling in his legs and his belly. OBJECTIVE: Vital signs: Temperature 98, blood pressure 125/72, heart rate 100, respirations 20, O2 saturation 96% on room air. General: This is a young male lying in bed in no acute distress. Heart: S1, S2. Normal. Tachycardic. Lungs: Equal air entry bilaterally. No wheezing. No rales. Abdomen: Positive bowel sounds. Soft. Nontender, nondistended. Extremities: There is 2+ edema bilaterally. Neurologic: The patient is alert and oriented x4. LABORATORY DATA: Sodium 132, potassium 3.9, chloride 99. CO2 is 23, BUN 11, creatinine 1, glucose 98. Total bilirubin 14, AST 69, ALT 224, alkaline phosphatase 127. ASSESSMENT AND PLAN: 1. Acute hepatitis secondary to hepatitis A and B. Continue to monitor closely for improvement. The patient's liver function tests were improving. 2. Volume overload. We will start the patient on Lasix and albumin. 3. Hypoalbuminemia. The patient has been started on albumin infusions and Lasix. 4. Hyponatremia. Stable. 5. Deep vein thrombosis prophylaxis. Continue on Lovenox. cc: Jessy Yeung MD
[2019-05-13] MEDS: LOVENOX SUBQ SCH (20:54)
[2019-05-13] MEDS: BENADRYL IV PRN (22:12)
[2019-05-14] MEDS: DILAUDID IV PRN ×6 (02:05→22:41)
[2019-05-14] MEDS: PRILOSEC PO SCH (06:07)
[2019-05-14] MEDS: BENADRYL IV PRN ×2 (06:10→23:35)
[2019-05-14 07:04] LABS: HEMATOCRIT 32.8 % (42.0-52.0); HEMOGLOBIN 11.4 g/dL (14.0-18.0); MCH 29.2 PG (27-31); MCHC 34.8 g/dL (33-37); MCV 83.9 FL (81-99); MPV 11.8 FL (7.4-10.4); RBC 3.91 XMIL (4.7-6.1); RDW 17.5 % (11.5-14.5); WBC 9.78 X1000 (4.8-10.8)
[2019-05-14 07:38] LABS: AGAP 8; ALB/GLOB RATIO 0.9; ALBUMIN 2.7 g/dL (3.5-5.0); ALKALINE PHOSPHATASE 122 U/L (32-122); BUN 10 mg/dL (8-22); CHLORIDE 97 mmol/L (98-107); COSMO 262; CREATININE 1.1 mg/dL (0.7-1.2); ESTIMATED GFR > 60; GLUCOSE 111 mg/dL (70-104); GOT 56 U/L (10-34); GPT 162 U/L (10-44); POTASSIUM 3.6 mmol/L (3.5-5.1); SODIUM 131 mmol/L (136-145); TCO2 26 mmol/L (25-35); TOTAL BILIRUBIN 13.12 mg/dL (0.20-1.00); TOTAL PROTEIN 5.7 g/dL (6.3-8.3)
[2019-05-14] MEDS: LASIX IV SCH (09:41)
[2019-05-14] MEDS: ALBUMIN 25% IV SCH (09:41)
[2019-05-14] MEDS ORDERED: SAMSCA PO ONE (18:03)
--- NOTE | 2019-05-14 18:25 | PROGRESS NOTE ---
DATE: 05/14/2019 SUBJECTIVE: The patient is resting comfortably. No acute events noted overnight. OBJECTIVE: Vital signs: Temperature 98.9 degrees, blood pressure 119/71, heart rate 103, respirations 18, and O2 saturation is 98% on room air. General: This is a young male lying in bed in no acute distress. Heart: S1, S2 normal. Lungs: Clear to auscultation bilaterally. Abdomen: Positive bowel sounds. Soft, nontender, nondistended Extremities: One plus edema bilaterally in the legs. Neurologic: The patient is alert and oriented x4. LABORATORIES: Hemoglobin 11, hematocrit 32, platelets 331,000. Sodium 131, potassium 3.6, chloride 97, CO2 of 26, BUN 10, creatinine 1.1, glucose 111, total bilirubin 13, AST 51, ALT 162, alkaline phosphatase 122, albumin 2.7. ASSESSMENT AND PLAN: 1. Acute hepatitis secondary to hepatitis A and B. Continue with supportive care. Further management as per GI. 2. Volume overload. Continue with diuretic and albumin infusions. 3. Hyponatremia. We will give the patient a dose of Samsca. 4. Deep vein thrombosis prophylaxis. Continue on Lovenox. cc: Jessy Yeung MD
[2019-05-14] MEDS: LOVENOX SUBQ SCH (22:41)
[2019-05-15] MEDS: DILAUDID IV PRN ×6 (02:25→22:25)
[2019-05-15] MEDS: PRILOSEC PO SCH (06:31)
[2019-05-15 06:54] LABS: HEMATOCRIT 34.8 % (42.0-52.0); HEMOGLOBIN 12.1 g/dL (14.0-18.0); MCH 29.3 PG (27-31); MCHC 34.8 g/dL (33-37); MCV 84.3 FL (81-99); MPV 11.5 FL (7.4-10.4); RBC 4.13 XMIL (4.7-6.1); RDW 18.4 % (11.5-14.5); WBC 9.45 X1000 (4.8-10.8)
[2019-05-15 07:11] LABS: AGAP 10; ALBUMIN 3.1 g/dL (3.5-5.0); ALKALINE PHOSPHATASE 124 U/L (32-122); BUN 10 mg/dL (8-22); CALCIUM 8.3 mg/dL (8.8-10.2); CHLORIDE 108 mmol/L (98-107); COSMO 286; CREATININE 1.2 mg/dL (0.7-1.2); ESTIMATED GFR > 60; GLUCOSE 92 mg/dL (70-104); GOT 41 U/L (10-34); GPT 120 U/L (10-44); POTASSIUM 3.7 mmol/L (3.5-5.1); SODIUM 144 mmol/L (136-145); TCO2 26 mmol/L (25-35); TOTAL BILIRUBIN 12.22 mg/dL (0.20-1.00); TOTAL PROTEIN 6.2 g/dL (6.3-8.3)
[2019-05-15] MEDS ORDERED: DILAUDID IV ONE (08:10)
[2019-05-15] MEDS ORDERED: NS 1,000 ML IV SCH (09:30)
[2019-05-15] MEDS: ALBUMIN 25% IV SCH (10:31)
[2019-05-15] MEDS: LASIX IV SCH (10:31)
--- NOTE | 2019-05-15 12:03 | Diag Imaging Result Doc PS360 ---
EXAM: ABDOMEN FLAT/UPRIGHT HISTORY: abdominal pain TECHNIQUE: Two views COMPARISON: None. FINDINGS: No free air beneath the diaphragm. Moderate stool throughout the colon. No bowel obstruction. Surgical clips in the mid left abdomen. There is a right pelvic phlebolith. IMPRESSION: Moderate constipation. Electronically signed by Pietro Valdez 05/15/2019 12:01 PM
[2019-05-15] MEDS ORDERED: MIRALAX PO ONE (12:41)
--- NOTE | 2019-05-15 15:49 | PROGRESS NOTE ---
DATE: 05/15/2019 SUBJECTIVE: The patient is complaining of severe abdominal pain. He reports that he had liquid stool 3 times this morning. OBJECTIVE: Vital Signs: Temperature 98.6 degrees. Blood pressure 133/81, heart rate 107, respirations 20, O2 saturation 99% on room air. General: This is a young male lying in bed in no acute distress. Heart: S1, S2 normal. Regular rate and rhythm. Lungs: Equal air entry bilaterally. No wheezing. No rales. Abdomen: Positive bowel sounds. Soft. Mildly distended. Extremities: 1+ edema. Neurologic: The patient is alert and oriented x3. LABS: White blood cell count 9.4, hemoglobin 12, hematocrit 34, platelets 394,000. Sodium 144, potassium 3.7, chloride 108, CO2 26, BUN 10, creatinine 1.2, glucose 92. Total bilirubin 12, AST 41, ALT 120, alkaline phosphatase 124. Abdominal x-ray reveals moderate constipation. ASSESSMENT AND PLAN: 1. C.difficile colitis. The patient is on Dificid since he is allergic to vancomycin. 2. Acute hepatitis secondary to hepatitis A and B. Continue with supportive care. The LFTs are improving. GI is following. 3. Volume overload. Improved. 4. Gastroesophageal reflux disease. Continue on Prilosec. 5. Deep vein thrombosis prophylaxis. Continue on Lovenox. cc: Jessy Yeung MD MTDD
[2019-05-15] MEDS ORDERED: MIRALAX PO SCH (21:00)
[2019-05-15] MEDS ORDERED: FLAGYL 500 MG/NS 500 MG/100 ML IVPB IV SCH (21:30)
[2019-05-15] MEDS: LOVENOX SUBQ SCH (22:25)
[2019-05-15] MEDS: DIFICID PO SCH (22:26)
[2019-05-16] MEDS: DILAUDID IV PRN ×6 (02:10→22:29)
[2019-05-16] MEDS: PRILOSEC PO SCH (06:00)
[2019-05-16 07:11] LABS: HEMATOCRIT 33.7 % (42.0-52.0); HEMOGLOBIN 11.9 g/dL (14.0-18.0); MCH 30.4 PG (27-31); MCHC 35.3 g/dL (33-37); MPV 11.3 FL (7.4-10.4); RBC 3.92 XMIL (4.7-6.1); RDW 18.8 % (11.5-14.5); WBC 8.32 X1000 (4.8-10.8)
[2019-05-16 07:21] LABS: AGAP 11; ALB/GLOB RATIO 1.1; ALBUMIN 3.4 g/dL (3.5-5.0); ALKALINE PHOSPHATASE 141 U/L (32-122); BUN 7 mg/dL (8-22); CALCIUM 8.5 mg/dL (8.8-10.2); CHLORIDE 104 mmol/L (98-107); COSMO 278; CREATININE 1.1 mg/dL (0.7-1.2); ESTIMATED GFR > 60; GLUCOSE 109 mg/dL (70-104); GOT 42 U/L (10-34); GPT 95 U/L (10-44); POTASSIUM 3.5 mmol/L (3.5-5.1); SODIUM 140 mmol/L (136-145); TCO2 25 mmol/L (25-35); TOTAL BILIRUBIN 12.19 mg/dL (0.20-1.00); TOTAL PROTEIN 6.4 g/dL (6.3-8.3)
[2019-05-16] MEDS: CULTURELLE PO SCH ×2 (10:23→21:22)
[2019-05-16] MEDS: DIFICID PO SCH ×2 (10:23→21:22)
[2019-05-16] MEDS: BENADRYL IV PRN ×2 (10:32→21:27)
--- NOTE | 2019-05-16 18:24 | GASTROENTEROLOGY PROGRESS NOTE ---
DATE: 05/16/2019 SUBJECTIVE: Patient is awake and alert. He states his abdominal pain and diarrhea have improved some today. He had diagnosis of C. difficile over the weekend. He was initially started on Flagyl and change to Dificid. Patient is allergic to vancomycin. Previous lab work regarding his hepatitis C showed undetected viral load. Still pending hepatitis B viral load. OBJECTIVE: Vital Signs: Temperature 98.9 degrees, pulse 94, respirations 17, blood pressure 138/82. General: Patient is awake, alert, in no acute distress. LABORATORY: Hematology: WBC 8.32, hemoglobin 11.9, hematocrit 33.7, MCV 86.0. Chemistry: Sodium 140, potassium 3.5, chloride 104, CO2 25, BUN 7, creatinine 1.1, glucose 109, calcium 8.5. Total bilirubin 12.19, AST 42, ALT 95, alkaline phosphatase 141. ASSESSMENT AND PLAN: 1. New diagnosis of Clostridium difficile colitis. The patient is on Dificid. 2. Acute hepatitis secondary to hepatitis A and B. Patient has a positive antibody for hepatitis C but his viral load was undetected. 3. Elevated liver function tests. Liver function tests are slowly improving. 4. We will continue to follow. Waiting hepatitis B viral load. Continue Dificid for C. difficile. Further plans will be made according to his progress. I have discussed this case with Dr. Thakur. Dictated by MARCELINO Ralph for Can Thaukr MD cc: MARCELINO Navarrete MD
--- NOTE | 2019-05-16 18:34 | PROGRESS NOTE ---
DATE: 05/16/2019 SUBJECTIVE: The patient is resting comfortably. He states that his abdominal plain is about the same. OBJECTIVE: Vital Signs: Temperature 98.2 degrees, blood pressure 114/63, heart rate 94, respirations 18, O2 saturations 98% on room air. General: This is a young male lying in bed in no acute distress. Heart: S1, S2 normal. Regular rate and rhythm. Lungs: Clear to auscultation bilaterally. Abdomen: Positive bowel sounds. Soft, nontender, nondistended. Extremities: Trace pedal edema. Neuro: The patient is alert and oriented x3. LABS: Sodium 140, potassium 3.5, chloride 104, CO2 25, BUN 7, creatinine 1.1, glucose 109, total bilirubin 12, AST 42, ALT 95, alkaline phosphatase 141. ASSESSMENT AND PLAN: 1. Clostridium difficile colitis. Continue on Dificid. Today is day 2 of therapy. 2. Acute hepatitis secondary to hepatitis A and B. Continue with supportive care. Slowly improving. Gastroenterology is following. 3. Gastroesophageal reflux disease. Continue on Prilosec. 4. Anemia. Stable. 5. Deep vein thrombosis prophylaxis. Continue on Lovenox. cc: Jessy Yeung MD MTDD
[2019-05-16] MEDS: LOVENOX SUBQ SCH (21:22)
[2019-05-17] MEDS: DILAUDID IV PRN ×4 (02:13→13:27)
[2019-05-17] MEDS: PRILOSEC PO SCH (06:11)
[2019-05-17 07:24] VITALS: BP 124/79
[2019-05-17 07:33] LABS: HEMATOCRIT 33.2 % (42.0-52.0); HEMOGLOBIN 11.6 g/dL (14.0-18.0); MCH 29.6 PG (27-31); MCHC 34.9 g/dL (33-37); MCV 84.7 FL (81-99); RBC 3.92 XMIL (4.7-6.1); RDW 19.3 % (11.5-14.5); WBC 8.3 X1000 (4.8-10.8)
[2019-05-17 07:51] LABS: AGAP 13; ALB/GLOB RATIO 0.9; ALBUMIN 3.1 g/dL (3.5-5.0); ALKALINE PHOSPHATASE 168 U/L (32-122); BUN 9 mg/dL (8-22); CALCIUM 8.1 mg/dL (8.8-10.2); CHLORIDE 101 mmol/L (98-107); COSMO 270; CREATININE 0.9 mg/dL (0.7-1.2); ESTIMATED GFR > 60; GLUCOSE 123 mg/dL (70-104); GOT 46 U/L (10-34); GPT 75 U/L (10-44); POTASSIUM 3.9 mmol/L (3.5-5.1); SODIUM 135 mmol/L (136-145); TCO2 21 mmol/L (25-35); TOTAL BILIRUBIN 11.73 mg/dL (0.20-1.00); TOTAL PROTEIN 6.5 g/dL (6.3-8.3)
[2019-05-17] MEDS: CULTURELLE PO SCH (09:43)
[2019-05-17] MEDS: DIFICID PO SCH (09:43)
--- NOTE | 2019-05-17 20:04 | GASTROENTEROLOGY PROGRESS NOTE ---
DATE: 05/17/2019 SUBJECTIVE: The patient was awake and alert. No acute distress. He states his abdominal pain has improved some. He has not had a bowel movement today. Patient is on Dificid for C. difficile colitis. Patient's hepatitis B viral load is still pending. OBJECTIVE: Vital Signs: Temperature 98.4 degrees, pulse 97, respirations 16, blood pressure 124/79. General: The patient is awake and alert. No acute distress. LABORATORY: Hematology: WBCs 8.30, hemoglobin 11.6, hematocrit 33.2, MCV 84.7, platelets 425. Chemistry: Sodium 135, potassium 3.9, chloride 101. CO2 is 21, BUN 9, creatinine 0.9, glucose 123. Total bilirubin 11.73 AST 46, ALT 75, alkaline phosphatase 168. ASSESSMENT: 1. Acute hepatitis. Positive for hepatitis A and B, and C. The patient's hepatitis C viral load was undetected. We are waiting on hepatitis B viral load. 2. Abdominal pain is improving. 3. Clostridium difficile colitis. Patient is on Dificid. PLAN: Continue current medications. Patient is feeling better. I believe he may possibly be discharged today. I have recommend him follow up with us in the office. We will continue to watch for the results of the hepatitis B DNA results, and further plans will be made as needed. I have discussed this case with Dr. Thakur. Dictated by MARCELINO Ralph for Can Thakur MD cc: MARCELINO Navarrete MD [facility]
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
[2019-05-18 16:15] LABS: HEPATITIS C GENOTYPE SEE COMMENTS
== END 2019-05-17 14:47 | disposition home or self-care (01) | DRG 442 ==
LOC: ED 19:06 → SUATTDRO 05-07 02:41 → 4N 05-07 02:41
PROVIDERS: ATTEND Internal Medicine